=== PATIENT | female | born 1930 | race Caucasian/White ===

== ENCOUNTER 2016-12-23 20:19 | Emergency (ER) | payer MEDICARE, BC ==
[2016-12-23 20:23] VITALS: BP 116/64
[2016-12-23] MEDS ORDERED: Ondansetron 4 MG Tab.DIS PO PRN (20:35)
[2016-12-23] MEDS ORDERED: Ketorolac 60 MG/2 ML SDV IM ONE (20:35)
--- NOTE | 2016-12-23 20:38 | EDM.PDOC ---
ED HPI Trauma - General Chief Complaint: Lower Extremity Injury/Pain Stated Complaint: KNEE PAIN Time Seen by Provider: 12/23/16 20:30 Source: Reports: Patient History Limitations: Reports: No limitations - History of Present Illness INITIAL COMMENTS - FREE TEXT/NARRATIVE: History of present illness: [86-year-old female coming in complaining of pain in left knee. Patient denies any history of trauma and indicates that she has bilateral pulmonary replacement and this knee has consistently been painful and difficult since implantation. Patient indicated she had gone to sleep in her recliner and had no pain she woke and went to put her recliner down and stand up and she was unable to bear weight. Upon arrival patient indicates it is marginally better as she may nail bed her leg the leg is still significantly painful.] Review of systems: As per history of present illness and below otherwise all systems reviewed and negative. Past medical history: As per history of present illness and as reviewed below otherwise noncontributory. Surgical history: As per history of present illness and as reviewed below otherwise noncontributory. Social history: No reported history of drug or alcohol abuse. Family history: As per history of present illness and as reviewed below otherwise noncontributory. Physical exam: HEENT: Atraumatic, normocephalic, pupils reactive, negative for conjunctival pallor or scleral icterus, mucous membranes moist, throat clear, neck supple, nontender, trachea midline. Lungs: Clear to auscultation, breath sounds equal bilaterally, chest nontender. Heart: S1S2, regular, negative for clicks, rubs, or JVD. Abdomen: Soft, nondistended, nontender. Negative for masses or hepatosplenomegaly. Negative for costovertebral tenderness. Pelvis: Stable nontender. Genitourinary: Deferred. Rectal: Deferred. Extremities: Atraumatic, negative for cords or calf pain. Neurovascular unremarkable. Neuro: Awake, alert, oriented. Cranial nerves II through XII unremarkable. Cerebellum unremarkable. Motor and sensory unremarkable throughout. Exam nonfocal. There is no appearance of trauma to left extremity it is painful to pressure and significant crepitus is palpated. Diagnostics: [X-ray left knee] Therapeutics: [Toradol, Zofran by mouth] Impression: [Knee pain] Plan: [Followup with ortho] Definitive disposition and diagnosis as appropriate pending reevaluation and review of above. Allergies/ADRs: Allergies acetaminophen [From Tylenol] Allergy (Verified 12/23/16 20:23) Cannot Remember egg Allergy (Verified 12/23/16 20:23) Cannot Remember Penicillins Allergy (Verified 12/23/16 20:23) Cannot Remember wheat Allergy (Verified 12/23/16 20:23) Cannot Remember SODIUM PENTOTHAL Allergy (Uncoded 08/08/16 10:20) Cannot Remember Home Medications: Ambulatory Orders Ascorbic Acid [Vitamin C] 500 mg PO DAILY 03/22/14 [Confirmed 12/23/16] Calcium Carbonate [Calcium] 500 mg PO DAILY 03/22/14 [Confirmed 12/23/16] Cholecalciferol (Vitamin D3) [Vitamin D] 2,000 unit PO DAILY 03/22/14 [ Confirmed 12/23/16] Diltiazem [Cardizem CD] 360 mg PO DAILY 03/22/14 [Confirmed 12/23/16] Furosemide [Lasix] 40 mg PO BID 03/22/14 [Confirmed 12/23/16] Warfarin [Coumadin] 2.5 mg PO SUTUTHSA 03/22/14 [Confirmed 12/23/16] Warfarin [Coumadin] 5 mg PO MOWEFR 03/22/14 [Confirmed 12/23/16] Denosumab [Prolia] 60 mg SUBCUT Q180D 01/17/15 [Confirmed 12/23/16] Potassium 2 tab PO DAILY 01/17/15 [Confirmed 12/23/16] Past Medical History HEENT History: Reports: Impaired vision Cardiovascular History: Reports: Afib, Hypertension - Past Surgical History HEENT Surgical History: Reports: Cataract surgery Female Surgical History: Reports: section, Hysterectomy Musculoskeletal Surgical History: Reports: Knee replacement, Other (see below) Other Musculoskeletal Surgeries/Procedures:: FOOT SURGERY, NECK SURGERY Social & Family History - Family History Oncologic: Reports: Other (see below) (cancer hx) - Tobacco Use Smoking Status *Q: Never Smoker - Recreational Drug Use Recreational Drug Use: No - Living Situation & Occupation Living situation: Reports: , alone Review of Systems - Review of Systems Review Of Systems: See Below (See history of present illness) Trauma Exam - Physical Exam Exam: See Below (See history of present illness) Course - Vital Signs Last Recorded V/S: Last Vital Signs Temp 36.4 C 12/23/16 20:20 Pulse 72 12/23/16 20:20 Resp 16 12/23/16 20:20 BP 116/64 12/23/16 20:20 Pulse Ox 96 12/23/16 20:20 - Orders/Labs/Meds Orders: Active Orders 24 hr Category Date Time Status Knee 3V Lt [CR] Stat Exams 12/23/16 20:35 Taken Ondansetron [Zofran ODT] Med 12/23/16 20:35 Active 8 mg PO ONETIME PRN Medication Orders Ondansetron HCl (Zofran Odt) 8 mg PO ONETIME PRN PRN Reason: Nausea/Vomiting Last Admin: 12/23/16 21:00 Dose: 8 mg Meds: Medications Generic Name Dose Route Start Last Admin Trade Name Freq PRN Reason Stop Dose Admin Ondansetron HCl 8 mg 12/23/16 20:35 12/23/16 21:00 Zofran Odt PO 8 mg ONETIME PRN Administration Nausea/Vomiting Discontinued Medications Generic Name Dose Route Start Last Admin Trade Name Freq PRN Reason Stop Dose Admin Ketorolac Tromethamine 60 mg 12/23/16 20:35 12/23/16 20:59 Toradol IM 12/23/16 20:36 60 mg ONETIME ONE Administration Departure - Departure Time of Disposition: 21:22 Disposition: Home, Self-Care 01 Condition: good Clinical Impression: Knee pain, left Qualifiers: Chronicity: acute Qualified Code(s): M25.562 - Pain in left knee Forms: ED Department Discharge Additional Instructions: The following information is given to patients seen in the emergency department who are being discharged to home. This information is to outline your options for follow-up care. We provide all patients seen in our emergency department with a follow-up referral. The need for follow-up, as well as the timing and circumstances, are variable depending upon the specifics of your emergency department visit. If you don't have a primary care physician on staff, we will provide you with a referral. We always advise you to contact your personal physician following an emergency department visit to inform them of the circumstance of the visit and for follow-up with them and/or the need for any referrals to a consulting specialist. The emergency department will also refer you to a specialist when appropriate. This referral assures that you have the opportunity for follow-up care with a specialist. All of these measure are taken in an effort to provide you with optimal care, which includes your follow-up. Under all circumstances we always encourage you to contact your private physician who remains a resource for coordinating your care. When calling for follow-up care, please make the office aware that this follow-up is from your recent emergency room visit. If for any reason you are refused follow-up, please contact the [facility] Emergency Department at and asked to speak to the emergency department charge nurse. With orthopedics for the first available appointment Follow up with primary care provider one to 2 days Turned ED as needed as discussed May take [id number] pain medicine as needed secondary to intolerance to most other medication May alternate ice and heat elevate leg - My Orders Last 24 Hours: My Active Orders 12/23/16 20:35 Knee 3V Lt [CR] Stat Ondansetron [Zofran ODT] 8 mg PO ONETIME PRN - Assessment/Plan Last 24 Hours: My Active Orders 12/23/16 20:35 Knee 3V Lt [CR] Stat Ondansetron [Zofran ODT] 8 mg PO ONETIME PRN
== END 2016-12-23 21:45 | disposition home or self-care (01) ==
LOC: CC.ED 20:19
DX: M25.562 Pain in left knee (principal); I48.91 Unspecified atrial fibrillation; I10 Essential (primary) hypertension; Z98.49 Cataract extraction status, unspecified eye; Z90.710 Acquired absence of both cervix and uterus; Z98.890 Other specified postprocedural states; Z91.012 Allergy to eggs; Z91.018 Allergy to other foods; Z88.0 Allergy status to penicillin; Z88.8 Allergy status to other drugs, medicaments and biological substances; Z79.01 Long term (current) use of anticoagulants
CPT/HCPCS: 73562; 96372; 99283; A9270; J1885